=== PATIENT | male | born 1975 | race Caucasian/White ===

== ENCOUNTER 2017-05-05 18:55 | Emergency (ER) | payer OTHER, MEDICAID ==
[2017-05-05] MEDS ORDERED: MORPHINE SULFATE 10 MG/ML INJ IM ONE (19:33)
[2017-05-05] MEDS ORDERED: ONDANSETRON HCL 8 MG TABLET PO ONE (19:40)
--- NOTE | 2017-05-05 19:45 | ER Document Report ---
ED Neck/Back Problem - General Chief Complaint: Back Pain Stated Complaint: BACK PAIN Time Seen by Provider: 05/05/17 19:25 Notes: 41 yo male c/o right sided low back pain x 2 weeks. persistant pain with intermittant radiculpathy to right hip. denies paresthesias. no fever, no bowel/bladder dysfunction. no motor/sensory change. no injury. no recent injections or tattoos. no hx/o cancer pain aggravated with movement, changing positions and forward flexion. no previous back injury. no relief with OTC motrin and heat. TRAVEL OUTSIDE OF THE [place] IN LAST 30 DAYS: No - HPI Patient complains to provider of: Pain, Lower back Onset: Other - 2 wks Timing: Constant Quality of pain: Sharp Pain Level: 4 Recent injury: No Associated symptoms: None. denies: Constipation, Fever, Incontinence, Like prior neck/back pain, Numbness/tingling, Unable to urinate Similar symptoms previously: No Recently seen / treated by doctor: No - Related Data Allergies/Adverse Reactions: No Known Allergies Allergy (Verified 05/05/17 18:59) Past Medical History - General Information source: Patient - Social History Smoking Status: Never Smoker Chew tobacco use (# tins/day): No Frequency of alcohol use: None Drug Abuse: None Lives with: Family Family History: Reviewed & Not Pertinent Patient has suicidal ideation: No Patient has homicidal ideation: No Surgical Hx: Other - ACL repair 4 months ago Review of Systems - Review of Systems Constitutional: No symptoms reported EENT: No symptoms reported Cardiovascular: No symptoms reported Respiratory: No symptoms reported Gastrointestinal: No symptoms reported Genitourinary: No symptoms reported Male Genitourinary: No symptoms reported Musculoskeletal: See HPI, Back pain Skin: No symptoms reported Hematologic/Lymphatic: No symptoms reported Neurological/Psychological: No symptoms reported Physical Exam - Vital signs Vitals: Temp Pulse Resp BP Pulse Ox 98.2 F 70 14 119/69 98 05/05/17 18:59 05/05/17 18:59 05/05/17 18:59 05/05/17 18:59 05/05/17 18:59 Interpretation: Normal - General General appearance: Appears well, Alert - HEENT Head: Normocephalic, Atraumatic Eyes: Normal Pupils: PERRL - Respiratory Respiratory status: No respiratory distress Chest status: Nontender Breath sounds: Normal Chest palpation: Normal - Cardiovascular Rhythm: Regular Heart sounds: Normal auscultation Murmur: No - Abdominal Inspection: Normal Distension: No distension Bowel sounds: Normal Tenderness: Nontender Organomegaly: No organomegaly - Back Back: Tender - right lumbar paraspinal tenderness. + right SI/piraformis tenderness. no reproducable vertbral pain. negative SLT. - Extremities General upper extremity: Normal inspection, Nontender, Normal color, Normal ROM , Normal temperature General lower extremity: Normal inspection, Nontender, Normal color, Normal ROM , Normal temperature, Normal weight bearing. No: Rodri's sign - Neurological Neuro grossly intact: Yes Cognition: Normal Orientation: AAOx4 Lohn Coma Scale Eye Opening: Spontaneous Lohn Coma Scale Verbal: Oriented Lohn Coma Scale Motor: Obeys Commands Lohn Coma Scale Total: 15 Speech: Normal Motor strength normal: LUE, RUE, LLE, RLE Sensory: Normal - Psychological Associated symptoms: Normal affect, Normal mood - Skin Skin Temperature: Warm Skin Moisture: Dry Skin Color: Normal Course - Re-evaluation Re-evalutation: 05/05/17 20:03 H&P c/w nonspecific acute low back pain. no neurologic deficits. no signs of cord compression, no hx of metastatic disease, no fever, no trauma. low clinical suspicion for emergent condition therefore no emergent imaging indicated. 05/05/17 20:42 pt slightly improved after meds. able to stand and walk. pt stable for discharge and outpatient follow up. agreeable with plan - Vital Signs Vital signs: Temp Pulse Resp BP Pulse Ox 98.2 F 70 14 119/69 98 05/05/17 18:59 05/05/17 18:59 05/05/17 18:59 05/05/17 18:59 05/05/17 18:59 Discharge - Discharge Clinical Impression: Acute low back pain Qualifiers: Back pain laterality: right Sciatica presence: with sciatica Sciatica laterality: sciatica of right side Qualified Code(s): M54.41 - Lumbago with sciatica, right side Condition: Stable Disposition: HOME, SELF-CARE Instructions: Ice Packs ([facility]), Oral Narcotic Medication ([facility]), Pain Medication Injection ([facility]), Low Back Pain ([facility]), Muscle Relaxers ([facility]) Additional Instructions: Your history and physical are consistant with acute low back pain Please take medications as prescribed and follow up with your primary care provider tomorrow for further evaluation and treatment Please return to ER for any worsening of your status Prescriptions: Ibuprofen [Motrin 800 Mg Tablet] 800 mg PO Q6H #20 tablet Methocarbamol [Robaxin 500 Mg Tablet] 1,000 mg PO Q6 #30 tablet Oxycodone HCl/Acetaminophen [Percocet 5-325 mg Tablet] 1 - 2 tab PO ASDIR PRN # 25 tablet PRN Reason: Referrals: LOCALMD,NO [Primary Care Provider] - Follow up as needed
[2017-05-05 21:04] VITALS: BP 117/78
--- NOTE | 2017-05-05 21:15 | RADIOLOGY REPORT (SQ) ---
EXAM DESCRIPTION: L SPINE WHOLE COMPLETED DATE/TIME: 05/05/2017 8:12 pm REASON FOR STUDY: low back pain COMPARISON: None. NUMBER OF VIEWS: Five views including obliques. TECHNIQUE: AP, lateral, oblique, and sacral radiographic images acquired of the lumbar spine. LIMITATIONS: None. FINDINGS: MINERALIZATION: Normal. SEGMENTATION: Normal. No transitional anatomy. ALIGNMENT: Normal. VERTEBRAE: Maintained height. No fracture or worrisome bone lesion. DISCS: Preserved height. No significant osteophytes or end plate irregularity. POSTERIOR ELEMENTS: Pedicles and facets are intact. Mild facet arthropathy at the L4-5 and L5-S1 lev els. No pars defect or posterior arch defects. HARDWARE: None in the spine. PARASPINAL SOFT TISSUES: Normal. PELVIS: Intact as visualized. No fractures or worrisome bone lesions. SI joints intact. OTHER: No other significant finding. IMPRESSION: No acute findings.Mild facet arthropathy at the L4-5 and L5-S1 levels. TECHNICAL DOCUMENTATION: JOB ID: [id number] [employer] [facility] [place]- All Rights Reserved
== END 2017-05-05 21:04 | disposition home or self-care (01) ==
LOC: ER 18:55
DX: M54.41 Lumbago with sciatica, right side (principal); M54.9 Dorsalgia, unspecified
CPT/HCPCS: 99283; 96372; 72110; J2270; S0119